=== PATIENT | female | born 1990 | race African-American/Black ===

== ENCOUNTER → 2018-07-30 | Emergency (ER) | payer OTHER, SELFPAY ==
[~2018-07-30] VITALS: Ht 162.6 cm; Wt 72.6 kg
[~2018-07-30] MED LIST: DiphenhydrAMINE 50mg/ml Inj IVP ONE; DiphenhydrAMINE 50mg/ml Inj ONE; Haloperidol 5mg/ml Inj IM ONE; Morphine Sulfate 4mg/ml Inj (IV USE ONLY) IVP ONE; Mylanta II UD 30ml ONE; Mylanta II UD 30ml ORAL ONE; Pantoprazole Inj IVP ONE
--- NOTE | 2018-07-30 10:55 | NUR ---
ED Nurse Note: pt assisted to [facility] via wc to obtain urine sample
--- NOTE | 2018-07-30 10:58 | NUR ---
ED Nurse Note: pt unable to void at this time aware
[2018-07-30 11:26] VITALS: BP 155/78
--- NOTE | 2018-07-30 11:30 | Emergency Room Report ---
History of Present Illness General Chief Complaint: Vomiting Source: Patient Present Illness HPI 28-year-old female with a self-reported history of pancreatitis in the past, presents with epigastric sharp pain with nausea and vomiting for the past 2 days , she reports she's not tried any medications could she couldn't keep anything down. She reports no recent alcohol, drug use, urinary symptoms, , diarrhea, rectal bleeding, coffee ground emesis, any other complaints. She reports she can't think of anything that triggered her symptoms this time. She does report that in the past she's had pancreatitis years ago and was told it was secondary to eating greasy food. She denies any surgical history at all. Allergies: Coded Allergies: No Known Allergies (Unverified , 06/06/14) Patient History Past Medical History: see triage record Now: No Reviewed Nursing Documentation: PMH: Agreed; PSxH: Agreed Nursing Documentation-PMH Past Medical History: No History, Except For Hx Gastrointestinal Problems: Yes - pancreatitis Review of Systems All Other Systems: negative except mentioned in HPI Physical Exam Vital Signs Date Time Temp Pulse Resp B/P (MAP) Pulse Ox O2 Delivery O2 Flow Rate FiO2 07/30/18 10:48 98.1 96 16 155/78 99 Room Air Sp02 EP Interpretation: reviewed, normal General Appearance: alert, non-toxic, mild distress Head: normocephalic Eyes: bilateral eye normal inspection, bilateral eye PERRL, bilateral eye EOMI ENT: normal ENT inspection, hearing grossly normal, normal pharynx, no angioedema, normal voice, moist mucus membranes Neck: normal inspection, full range of motion, supple, supple/symm/no masses Respiratory: chest non-tender, lungs clear, normal breath sounds, no rhonchi, no respiratory distress, no retraction, no accessory muscle use, chest symmetrical, palpation of chest normal Cardiovascular #1: normal peripheral pulses, regular rate, rhythm, no edema, no gallop, no JVD, no murmur, no rub, JVD Cardiovascular #2: 2+ radial (R), 2+ radial (L) Gastrointestinal: normal inspection, soft, no mass, no guarding, no rebound, tenderness - epigastric tenderness Rectal: deferred Genitourinary: normal inspection, no CVA tenderness Musculoskeletal: back normal, gait/station normal, normal range of motion, non- tender, no calf tenderness Neurologic: alert, responsive, youth court judge III-XII nml as tested, motor strength/tone normal, sensory intact, speech normal Psychiatric: judgement/insight normal, memory normal, anxious Skin: normal color, no rash, warm/dry, normal turgor Lymphatic: no adenopathy Medical Decision Making Diagnostic Impression: Primary Impression: Abdominal pain ER Course Patient has been dry heaving here, she's had no history of surgeries, serum test is negative, labs including lipase unremarkable, she was given 1 dose of morphine, wound is Zofran and Benadryl, 1 L IV saline, no actual vomiting occurring here, recurrent exams reveal soft abdomen. She requested more pain medicine, I suggested IM Haldol. Patient was going to be discharged, but she received 3L NSS via IV, 1 dose of morphine, IV PPI, and her labs were normal, and although we did not get a urine drug screen, I suspect cannabinoid hyperemesis syndrome. She never gave us a urine specimen but denied urinary symptoms, and according to Gudelia from the RN team, the patient went to the bathroom and said she spilled her urine cup earlier in her stay, requesting pain meds. Earlier in her stay, patient eventually left the department, eloping without warning when I went to go check back on her. Last Vital Signs Date Time Temp Pulse Resp B/P (MAP) Pulse Ox O2 Delivery O2 Flow Rate FiO2 07/30/18 10:48 98.1 96 16 155/78 99 Room Air Disposition: ELOPED Condition: Stable GENNARO DSOUZA M.D Jul 30, 2018 11:30
--- NOTE | 2018-07-30 11:42 | NUR ---
ED Nurse Note: microbiology teacher Owen here to draw pt. pt with pain meds given prior to serum resulted per ed md
[2018-07-30 11:52] LABS: BASOPHILS % (AUTO) 0.7 % (0.0-2.0); EOSINOPHILS % (AUTO) 0.3 % (0.0-3.0); HEMATOCRIT 43.3 % (37.0-47.0); HEMOGLOBIN 13.2 G/DL (12.0-16.0); LYMPHOCYTES % (AUTO) 15.3 % (20.0-45.0); MEAN CORPUSCULAR VOLUME 80 FL (80-99); MONOCYTES % (AUTO) 3.7 % (1.0-10.0); NEUTROPHILS % (AUTO) 79.9 % (45.0-75.0); PLATELET COUNT 385 K/UL (150-450); RED BLOOD COUNT 5.44 M/UL (4.20-5.40); RED CELL DISTRIBUTION WIDTH 16.3 % (11.6-14.8); WHITE BLOOD COUNT 6.2 K/UL (4.8-10.8)
--- NOTE | 2018-07-30 12:00 | NUR ---
ED Nurse Note: pt continues to have n/v of bile and abd pain. pt to have further meds.
[2018-07-30 12:15] VITALS: BP 134/90
[2018-07-30 12:19] LABS: ANION GAP 13 mmol/L (5-15); BLOOD UREA NITROGEN 14 mg/dL (7-18); CALCIUM 9.4 MG/DL (8.5-10.1); CARBON DIOXIDE 23 MMOL/L (21-32); CHLORIDE 104 MMOL/L (98-107); CREATININE 0.7 MG/DL (0.55-1.30); POTASSIUM 3.9 MMOL/L (3.5-5.1); SODIUM 140 MMOL/L (136-145)
[2018-07-30 12:26] LABS: ALANINE AMINOTRANSFERASE 12 U/L (12-78); ALBUMIN 3.8 G/DL (3.4-5.0); ALKALINE PHOSPHATASE 78 U/L (46-116); ASPARTATE AMINO TRANSFERASE 23 U/L (15-37); BILIRUBIN,TOTAL 1.1 MG/DL (0.2-1.0)
[2018-07-30 12:28] LABS: BILIRUBIN,DIRECT 0.2 MG/DL (0.0-0.3)
--- NOTE | 2018-07-30 13:04 | NUR ---
ED Nurse Note: pt amb to [facility] did not obtain urine sample despite being made aware to obtain one previously and urine specimen cup had been provided. pt states not able to tolerated myl[place] as "it made me nauseous" pt requests to be reeval by md oswaldo aware
--- NOTE | 2018-07-30 15:00 | NUR ---
ED Nurse Note: phoned pt to update her on dc status, no answer message left to return call back to me.
--- NOTE | 2018-07-30 15:01 | NUR ---
ED Nurse Note: pt apparent elopement per covering rn/full charge bookkeeper. pt leaving without notifying staff.
== END | disposition left against medical advice (07) ==
LOC: EDUNIT# 10:46 → EDBD 10:57 → EMR 11:27
DX: R10.13 Epigastric pain (principal); R11.2 Nausea with vomiting, unspecified
CPT/HCPCS: 36415; 80053; 82248; 83690; 84703; 85025; 96361; 96372; 96374; 96375; 99284; J1200; J1630; J2270; J2405